=== PATIENT | male | born 1980 | race African-American/Black ===

== ENCOUNTER 2016-07-08 11:04 | Emergency (ER) | payer SELFPAY ==
[2016-07-08] MEDS ORDERED: Albuterol 0.5% 2.5 MG/0.5 ML Neb Soln NEB ONE (11:50)
[2016-07-08] MEDS ORDERED: predniSONE 20 MG Tab PO ONE (11:50)
--- NOTE | 2016-07-08 11:54 | EDM.PDOC ---
ED HISTORY OF PRESENT ILLNESS - General Chief Complaint: Respiratory Problem Stated Complaint: ASTHMA Time Seen by Provider: 07/08/16 11:39 Source of Information: Reports: Patient History Limitations: Reports: No limitations - History of Present Illness INITIAL COMMENTS - FREE TEXT/NARRATIVE: Patient has history of asthma. States since moving from [place] to [place] this past Wednesday has been experiencing SOB and intermittent chest tightness. [facility] this is consistent with previous asthma flare ups. States he has been short of breath a few weeks prior to moving. States he believes the change in altitude and allergy exposure are worsening the symptoms. In addition experiences intermittent left lateral chest pain described as dull pain, decreased with taking deep breath. Pain is mild in intensity with no known aggravating factors. States he has intermittent cough with only clear phlegm. Has noticed increased sinus congestion, postnasal gtt with moving. States he has a history of acid reflux with no worsening with no increased noted with recent symptoms. [facility] a few months ago had echocardiogram revealing only mild valve leaks. Denies n/v, diaphoresis, dizziness, fever/chills, or any additional complaints. Past medical history asthma, genital herpes, MRSA. Medications Provera and acyclovir Surgical history carpal tunnel surgery and ulnar nerve decompression Timing/Duration: Reports: Constant, Waxing/waning Severity: mild Location, General: Reports: chest Quality: Reports: Dull Improves with: Reports: Other (Taking deep breath) Worsens with: Reports: Other (None stated) Context, General: Reports: Other (Just moved from [place] to [place]) Associated Symptoms (General): Reports: chest pain, cough w sputum, shortness of breath. 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 (see below) (see HPI) - Related Data Allergies/ADRs: Allergies Allergy/AdvReac Type Severity Reaction Status Date / Time ciprofloxacin [From Cipro] Allergy Cannot Verified 07/08/16 11:20 Remember doxycycline Allergy Cannot Verified 07/08/16 11:20 Remember vancomycin Allergy Other Verified 07/08/16 11:20 Home Meds: Home Meds Acyclovir 400 mg PO BID 07/08/16 [History] Albuterol [Ventolin HFA] 2 puff INH Q4HR #1 inhaler 07/08/16 [Rx] Prednisone [IMW: predniSONE] 40 mg PO WITHBREAKFAST #10 tab 07/08/16 [Rx] Past Medical History Respiratory History: Reports: Asthma Gastrointestinal History: Reports: GERD Social & Family History - Tobacco Use Smoking Status *Q: Current Every Day Smoker Years of Tobacco use: 20 Packs/Tins Daily: 0.3 - Recreational Drug Use Recreational Drug Use: No ED ROS GENERAL - Review of Systems Review Of Systems: See Below Constitutional: Denies: fever, chills, malaise, weakness, fatigue, decreased appetite HEENT: Reports: Rhinitis, Sinus problem. Denies: Ear pain, Throat pain Respiratory: Reports: Shortness of Breath, Wheezing (Intermittent), Pleuritic Chest Pain, Cough, Sputum (Clear) Cardiovascular: Reports: Dyspnea on exertion. Denies: Chest pain, Edema, Lightheadedness, Orthopnea, Palpitations, PND, Syncope GI/Abdominal: Denies: Abdominal pain, Constipation, Diarrhea, Nausea, Vomiting Skin: Denies: rash Neurological: Denies: Dizziness ED EXAM, GENERAL - Physical Exam Exam: See Below Exam Limited By: No limitations General Appearance: alert, WD/WN, no apparent distress Eye Exam: bilateral eye: PERRL Ears: hearing grossly normal Nose: normal inspection, normal mucosa, no blood Throat/Mouth: Normal inspection, Normal oropharynx, Normal voice, No airway compromise Neck: normal inspection, supple, non-tender, full range of motion. No: lymphadenopathy (L), lymphadenopathy (R) Respiratory/Chest: no respiratory distress, no accessory muscle use, chest non- tender, pleural rub (Right lung field). No: crackles, rales, rhonchi, wheezing Cardiovascular: normal peripheral pulses, regular rate, rhythm, no edema, no murmur Peripheral Pulses: 2+: radial (R) GI/Abdominal: normal bowel sounds, soft, non tender, no distention Back Exam: normal inspection Extremities: normal inspection, normal range of motion, non-tender, no pedal edema, normal capillary refill Neurological: alert, oriented, CN II-XII intact, normal cognition, no motor/ sensory deficits Psychiatric: normal affect, normal mood Skin Exam: Warm, Dry, Intact, Normal color, No rash Course - Vital Signs Last Recorded V/S: Last Vital Signs Temp 98.0 F 07/08/16 11:21 Pulse 90 07/08/16 11:21 Resp 18 07/08/16 11:21 BP 153/100 H 07/08/16 11:21 Pulse Ox 98 07/08/16 12:06 - Orders/Labs/Meds Orders: Active Orders 24 hr Category Date Time Status EKG Documentation Completion [RC] STAT Care 07/08/16 11:50 Active RT Aerosol Therapy [RC] ASDIRECTED Care 07/08/16 11:50 Active Meds: Medications Discontinued Medications Generic Name Dose Route Start Last Admin Trade Name Estrada PRN Reason Stop Dose Admin Albuterol 2.5 mg 07/08/16 11:50 07/08/16 12:06 Proventil NEB 07/08/16 11:51 2.5 mg ONETIME ONE Administration Prednisone 40 mg 07/08/16 11:50 07/08/16 12:13 Prednisone PO 07/08/16 11:51 40 mg ONETIME ONE Administration - Re-Assessments/Exams Free Text/Narrative Re-Assessment/Exam: PERC Rule Negative. Ordered a chest x-ray, EKG, albuterol neb treatment, and prednisone 40 mg by mouth. 07/08/16 11:51 EKG sinus rhythm at a rate of 90, normal P axis, QTC 433, minimal ST elevation in the anterior leads, no acute ST changes noted. 07/08/16 12:25 1225 CXR revealed no acute processes. This was reviewed with . Final interpretation pending. 07/08/16 13:00 Reassessment, patient states after the albuterol neb treatment and also prednisone symptoms have gradually improved. Will discharge patient home with instructions. Departure - Departure Time of Disposition: 13:01 Disposition: Home, Self-Care 01 Condition: good Clinical Impression: Shortness of breath, Asthma exacerbation, mild Prescriptions: Albuterol [Ventolin HFA] 2 puff INH Q4HR #1 inhaler Prednisone [IMW: predniSONE] 40 mg PO WITHBREAKFAST #10 tab Instructions: Asthma, Adult, Shortness of Breath, [id number] Referrals: PCP,None [Primary Care Provider] - Elaina Morton [Physician] - Forms: ED Department Discharge, Return to Work/School Form Additional Instructions: Take the prednisone and albuterol as prescribed. Followup with Dr. Love PCP at [facility] in the next 2 to 3 wks. STOP SMOKING. Return to the E.D. as needed. - My Orders Last 24 Hours: My Active Orders 07/08/16 11:50 EKG Documentation Completion [RC] STAT RT Aerosol Therapy [RC] ASDIRECTED - Assessment/Plan Last 24 Hours: My Active Orders 07/08/16 11:50 EKG Documentation Completion [RC] STAT RT Aerosol Therapy [RC] ASDIRECTED
--- NOTE | 2016-07-08 12:34 | CR ---
Chest: Two views of the chest were obtained. Comparison: No previous chest x-ray. Heart size and mediastinum are normal. Lungs are clear. Bony structures are unremarkable. Impression: 1. Nothing acute is seen on two-view chest x-ray. Diagnostic code #1
[2016-07-08 13:48] VITALS: BP 130/82
== END 2016-07-08 13:20 | disposition home or self-care (01) ==
LOC: JD.ED 11:04
DX: J45.901 Unspecified asthma with (acute) exacerbation (principal); K21.9 Gastro-esophageal reflux disease without esophagitis; F17.200 Nicotine dependence, unspecified, uncomplicated; Z79.899 Other long term (current) drug therapy; Z88.1 Allergy status to other antibiotic agents
CPT/HCPCS: 71020; 93005; 94664; 99285; A9270; 99284

== ENCOUNTER 2016-11-15 15:22 | Emergency (ER) | payer BC ==
[2016-11-15 15:40] VITALS: BP 156/109
--- NOTE | 2016-11-15 16:13 | EDM.PDOC ---
ED HPI GENERAL MEDICAL PROBLEM - General Chief Complaint: Upper Extremity Injury/Pain Stated Complaint: RIGHT WRIST AND ARM PAIN Time Seen by Provider: 11/15/16 16:01 Source of Information: Reports: Patient History Limitations: Reports: No Limitations - History of Present Illness INITIAL COMMENTS - FREE TEXT/NARRATIVE: Patient is a 36-year-old male who presents to the ED complaining of right elbow and wrist pain. Patient states approximately 3 months ago had carpal tunnel surgery and also transposition of the ulnar nerve on the same arm. 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 States he has intermittent pain that has increased in frequency as of late. Pain is a throbbing achy sensation relieved with rest. He's been taking ibuprofen 800 mg with minimal relief while at work. He continues to wear wrist splints at night. Denies any recent injury to the affected extremity causing worsening pain. There 's been no swelling, redness, numbness or tingling, or any additional complaints. He did contact the orthopedic surgeon that performed this procedure and requested patient be seen in the ED for possible steroid injection. This was conducted in [place]. He offers no additional complaints. Right Elbow Pain Score (Numeric/FACES): 5 - Related Data Allergies Allergy/AdvReac Type Severity Reaction Status Date / Time ciprofloxacin [From Cipro] Allergy Cannot Verified 11/15/16 15:40 Remember doxycycline Allergy Cannot Verified 11/15/16 15:40 Remember vancomycin Allergy Other Verified 11/15/16 15:40 Home Meds: Home Meds Acyclovir 400 mg PO BID 07/08/16 [History] Albuterol [Ventolin HFA] 2 puff INH Q4HR #1 inhaler 07/08/16 [Rx] Past Medical History Respiratory History: Reports: Asthma Gastrointestinal History: Reports: GERD Social & Family History - Tobacco Use Smoking Status *Q: Current Every Day Smoker Years of Tobacco use: 16 Packs/Tins Daily: 1 - Caffeine Use Caffeine Use: Reports: Coffee - Recreational Drug Use Recreational Drug Use: Yes Drug Use in Last 12 Months: Yes Recreational Drug Type: Reports: Marijuana/Hashish Recreational Drug Use Frequency: Rarely Review of Systems - Review of Systems Review Of Systems: ROS reveals no pertinent complaints other than HPI. ED EXAM, GENERAL - Physical Exam Exam: See Below Exam Limited By: No Limitations General Appearance: Alert, WD/WN, No Apparent Distress Ears: Hearing Grossly Normal Nose: Normal Inspection Throat/Mouth: Normal Voice, No Airway Compromise Neck: Normal Inspection, Supple Respiratory/Chest: No Respiratory Distress, Lungs Clear, Normal Breath Sounds, No Accessory Muscle Use Cardiovascular: Normal Peripheral Pulses, Regular Rate, Rhythm Peripheral Pulses: 2+: Radial (R) Extremities: Normal Inspection, Normal Range of Motion, No Pedal Edema, Normal Capillary Refill, Other (tenderness noted to the medial aspect of the right elbow. No sensory/motor deficits distally. Old surgical incision to the right wrist 2nd to carpal tunnel release. No pain with palpation. Patient has a trigger finger to the right index finger.) Neurological: Alert, Oriented, CN II-XII Intact, Normal Cognition, No Motor/ Sensory Deficits Psychiatric: Normal Affect, Normal Mood Skin Exam: Warm, Dry, Intact, Normal Color Course - Vital Signs Last Recorded V/S: Last Vital Signs Temp 98.5 F 11/15/16 15:35 Pulse 96 11/15/16 15:35 Resp 16 11/15/16 15:35 BP 156/109 H 11/15/16 15:35 Pulse Ox 98 11/15/16 15:35 - Re-Assessments/Exams Free Text/Narrative Re-Assessment/Exam: On examination patient had minimal discomfort. No sensory/motor deficits noted. Trigger finger present to the right index finger. He is requesting a cortisone injection for the trigger finger. Will have the patient follow-up with a orthopedic surgeon to be reevaluated and determine the best course of treatment for the trigger finger. Patient had no additional questions or concerns. He'll be discharged home with instructions as documented. No further therapies are required today. Departure - Departure Time of Disposition: 16:17 Disposition: Home, Self-Care 01 Condition: Good Clinical Impression: Wrist pain, right, Elbow pain, right Trigger finger of right hand Qualifiers: Trigger finger location: index finger Qualified Code(s): M65.321 - Trigger finger, right index finger - Discharge Information Instructions: Trigger Finger, Wrist Pain, [id number] Referrals: Min Antonio MD [Physician] - Forms: ED Department Discharge, ED Return to Work/School Form Additional Instructions: As discussed refrain from any activities that cause worsening pain. Apply ice to the affected areas 4 times daily, 20 to duration, do not apply ice directly on the skin. Take ibuprofen and Tylenol in alternating fashion for pain. Call and make an appointment to be seen by an orthopedic surgeon in the next week for reevaluation and determine best course of treatment for trigger finger. Continue wearing wrist splints at night. Return to the ED as needed for any new or worsening symptoms.
== END 2016-11-15 16:35 | disposition home or self-care (01) ==
LOC: JD.ED 15:22
DX: M65.321 Trigger finger, right index finger (principal); J45.909 Unspecified asthma, uncomplicated; F17.210 Nicotine dependence, cigarettes, uncomplicated; K21.9 Gastro-esophageal reflux disease without esophagitis; Z88.1 Allergy status to other antibiotic agents
CPT/HCPCS: 99283

== ENCOUNTER 2017-02-14 18:38 | Emergency (ER) | payer BC ==
[2017-02-14 18:44] VITALS: BP 154/115
--- NOTE | 2017-02-14 19:09 | EDM.PDOC ---
ED HPI GENERAL MEDICAL PROBLEM - General Chief Complaint: Respiratory Problem Stated Complaint: SOB Time Seen by Provider: 02/14/17 18:55 Source of Information: Reports: Patient History Limitations: Reports: No Limitations - History of Present Illness INITIAL COMMENTS - FREE TEXT/NARRATIVE: 37-year-old male presents for evaluation treatment of an asthma exacerbation and shortness of breath. Patient reports he was ill last week with cold symptoms. He states that he thought he was over the symptoms and then on night he had worsening coughing. He states that he coughed so hard that he did vomit. He reports globus sensation. He reports that Wednesday morning he was coughing had a runny nose. He has been using Mucinex with no relief. He has reports a scratchy throat. Denies any fevers, chills, nausea, ear pain or throat pain. Normal he does not need his albuterol inhaler on a daily basis. He reports over the last few days he has been having to use the albuterol inhaler about twice a day. Patient did not get a flu shot this year. He denies any recent travel. Duration: Week(s): (1) Back Pain Score (Numeric/FACES): 4 - Related Data Allergies Allergy/AdvReac Type Severity Reaction Status Date / Time ciprofloxacin [From Cipro] Allergy Cannot Verified 11/15/16 15:40 Remember doxycycline Allergy Cannot Verified 11/15/16 15:40 Remember vancomycin Allergy Other Verified 11/15/16 15:40 Home Meds: Home Meds Acyclovir 400 mg PO BID 07/08/16 [History] Albuterol [Ventolin HFA] 2 puff INH Q4HR #1 inhaler 07/08/16 [Rx] Prednisone [IJD: predniSONE] 20 mg PO BID #10 tab 02/14/17 [Rx] Past Medical History Respiratory History: Reports: Asthma Gastrointestinal History: Reports: GERD - Past Surgical History Musculoskeletal Surgical History: Reports: Carpal Tunnel Social & Family History - Tobacco Use Smoking Status *Q: Current Every Day Smoker Years of Tobacco use: 17 Packs/Tins Daily: 1 - Caffeine Use Caffeine Use: Reports: Coffee, Soda, Tea - Recreational Drug Use Recreational Drug Use: No Drug Use in Last 12 Months: Yes Recreational Drug Type: Reports: Marijuana/Hashish Recreational Drug Use Frequency: Rarely ED ROS GENERAL - Review of Systems Review Of Systems: See Below Constitutional: Denies: Fever, Chills HEENT: Denies: Ear Pain, Throat Pain (reports a "scratchy throat") Respiratory: Reports: Cough GI/Abdominal: Reports: Vomiting (post emesis x 1) ED EXAM, GENERAL - Physical Exam Exam: See Below Exam Limited By: No Limitations General Appearance: Alert, WD/WN, No Apparent Distress Eye Exam: Bilateral Eye: Normal Inspection Ears: Normal External Exam, Normal Canal, Hearing Grossly Normal, Normal TMs Nose: Normal Inspection Throat/Mouth: Normal Inspection, Normal Lips, Normal Voice, No Airway Compromise Respiratory/Chest: No Respiratory Distress, Lungs Clear, Normal Breath Sounds Cardiovascular: Normal Peripheral Pulses, Regular Rate, Rhythm, No Murmur Neurological: Alert, Oriented, Normal Cognition Psychiatric: Normal Affect, Normal Mood Skin Exam: Warm, Dry, Normal Color Course - Vital Signs Last Recorded V/S: Last Vital Signs Temp 36.4 C 02/14/17 18:43 Pulse 88 02/14/17 18:43 Resp 20 02/14/17 18:43 BP 154/115 H 02/14/17 18:43 Pulse Ox 99 02/14/17 18:43 - Orders/Labs/Meds Orders: Active Orders 24 hr Category Date Time Status Chest 2V [CR] Stat Exams 02/14/17 19:03 Taken - Radiology Interpretation Free Text/Narrative:: chest xray 2 view shows no acute intrathoracic process - Re-Assessments/Exams Free Text/Narrative Re-Assessment/Exam: 02/14/17 20:20 Influenza is negative. Reviewed the chest xray and influenza with the patient. Will put on a short course of prednisone. The patient's blood pressure has been elevated in the ER with a systolic 150s to 160s. I encouraged him to, once he is feeling better and no longer on the prednisone, check his blood pressure at least weekly and record this. He continues to have a blood pressure of greater than 130/90 follow-up with family medicine. We will discharge home at this time. Discharge instructions as documented. Departure - Departure Time of Disposition: 20:28 Disposition: Home, Self-Care 01 Condition: Good Clinical Impression: Asthma exacerbation, mild, High blood pressure - Discharge Information Prescriptions: Prednisone [IJD: predniSONE] 20 mg PO BID #10 tab Instructions: Asthma, Adult, Hypertension, [id number] Referrals: PCP,None [Primary Care Provider] - Elaina Morton [Physician] - Forms: ED Department Discharge Additional Instructions: Take the prednisone one tablet twice a day for 5 days. Continue to use your albuterol nebulizer as needed for shortness of breath. Follow-up with family medicine your symptoms are not much better in 2 weeks. rest. Make sure are drinking plenty of fluids. [id number] Tylenol or Motrin as needed for headache and symptom relief. Recommend checking your blood pressure at least once a week. Record this. If your blood pressure continues to be 130/90 follow-up with family medicine. Recommend Dr. Geronimo or Mk Wong at the [facility]. Please call to schedule either one of these providers. Please return to the ER if your symptoms change or worsen. - My Orders Last 24 Hours: My Active Orders 02/14/17 19:03 Chest 2V [CR] Stat - Assessment/Plan Last 24 Hours: My Active Orders 02/14/17 19:03 Chest 2V [CR] Stat
--- NOTE | 2017-02-15 07:24 | CR ---
Chest: Two views of the chest were obtained. Comparison: Prior chest x-ray of 07/08/16. Heart size and mediastinum are normal. Lungs are clear. Bony structures are unremarkable for the patient's age. Impression: 1. Nothing acute is identified on two-view chest x-ray. Diagnostic code #1
== END 2017-02-14 20:35 | disposition home or self-care (01) ==
LOC: JD.ED 18:38
DX: J45.901 Unspecified asthma with (acute) exacerbation (principal); R03.0 Elevated blood-pressure reading, without diagnosis of hypertension; F17.210 Nicotine dependence, cigarettes, uncomplicated; Z88.1 Allergy status to other antibiotic agents
CPT/HCPCS: 71020; 71020-26; 87804; 99284; 99285

== ENCOUNTER 2017-08-10 16:47 | Emergency (ER) | payer BC ==
[2017-08-10 16:57] VITALS: BP 140/98
--- NOTE | 2017-08-10 18:33 | EDM.PDOC ---
ED HPI GENERAL MEDICAL PROBLEM - General Chief Complaint: Chest Pain Stated Complaint: RHIANNON SENT HIM HERE Time Seen by Provider: 08/10/17 17:10 Source of Information: Reports: Patient, Provider (walk-in clinic provider) History Limitations: Reports: No Limitations - History of Present Illness INITIAL COMMENTS - FREE TEXT/NARRATIVE: 37-year-old male sent from the walk-in clinic for evaluation and treatment of chest pain shortness breath. He walking clinic provider call and states that they're worried about a PE and therefore decided to send those to us for further management and care. Patient reports that he has been experiencing chest pains. States this is been going on for several years. He also reports that he has some shortness of breath. States that he had times will gasp for breath. Reports when he falls asleep sometimes he'll wake up gasping for air. He is not having headaches but states he feels "cloudy". He denies any lightheadedness, syncope, nausea, vomiting or any fevers. Reports that the chest pain is more of a tightness. Sometimes it is a sharp pain. States that belching will often relieve the discomfort. He is not currently on a proton pump inhibitor but states he has a past medical history of GERD. He did have not upper endoscopy in the past, and this has been several years. Patient reports that he has seen cardiology in the past. He had what he describes as an echocardiogram. Was told that he had a "leaky valve ". He states he is supposed to see cardiology yearly but since he moved to [place] from [place] he has not followed up with cardiology. Reports swelling in his legs evident by seen the band from his socks on his legs. Patient's primary care providers is Bertha Elise. Left Chest Pain Score (Numeric/FACES): 2 - Related Data Allergies Allergy/AdvReac Type Severity Reaction Status Date / Time ciprofloxacin [From Cipro] Allergy Cannot Verified 08/10/17 16:53 Remember doxycycline Allergy Cannot Verified 08/10/17 16:53 Remember vancomycin Allergy Other Verified 08/10/17 16:53 Home Meds: Home Meds Acyclovir 400 mg PO BID 07/08/16 [History] Fish Oil/[place]-3 Fatty Acids [Fish Oil 1,000 MG] 1 tab PO DAILY 08/10/17 [ History] amLODIPine Besylate [Amlodipine Besylate] 10 mg PO DAILY 08/10/17 [History] Past Medical History Cardiovascular History: Reports: Hypertension Respiratory History: Reports: Asthma Gastrointestinal History: Reports: GERD - Past Surgical History Musculoskeletal Surgical History: Reports: Carpal Tunnel Social & Family History - Tobacco Use Smoking Status *Q: Current Every Day Smoker Years of Tobacco use: 20 Packs/Tins Daily: 0.2 - Caffeine Use Caffeine Use: Reports: Coffee, Soda - Recreational Drug Use Recreational Drug Use: No ED ROS GENERAL - Review of Systems Review Of Systems: See Below Respiratory: Reports: Shortness of Breath Cardiovascular: Reports: Chest Pain, Edema. Denies: Lightheadedness, Syncope GI/Abdominal: Denies: Nausea, Vomiting Neurological: Denies: Headache, Syncope ED EXAM, GENERAL - Physical Exam Exam: See Below Exam Limited By: No Limitations General Appearance: Alert, WD/WN, No Apparent Distress Ears: Normal External Exam Nose: Normal Inspection Throat/Mouth: Normal Inspection, Normal Lips, Normal Voice, No Airway Compromise Respiratory/Chest: No Respiratory Distress, Lungs Clear, Normal Breath Sounds Cardiovascular: Normal Peripheral Pulses, Regular Rate, Rhythm, No Murmur GI/Abdominal: Normal Bowel Sounds, Soft, Non-Tender Neurological: Alert, Oriented, Normal Cognition Psychiatric: Normal Affect, Normal Mood Skin Exam: Warm, Dry, Normal Color EKG INTERPRETATION EKG Date: 08/10/17 Time: 17:55 Rhythm: NSR Rate (Beats/Min): 87 [place]: Normal P-Wave: Present QRS: Normal ST-T: Normal QT: Normal Comparison: No Change EKG Interpretation Comments: NSR at 87 bpm. No acute changes. No change from 07-08-16 ECG. Reviewed by myself and Dr. Faye. Course - Vital Signs Last Recorded V/S: Last Vital Signs Temp 37.3 C 08/10/17 16:56 Pulse 90 08/10/17 16:56 Resp 16 08/10/17 16:56 BP 140/98 H 08/10/17 16:56 Pulse Ox 97 08/10/17 16:56 - Orders/Labs/Meds Orders: Active Orders 24 hr Category Date Time Status Cardiac Monitoring [RC] . DIRECTED Care 08/10/17 17:25 Active EKG Documentation Completion [RC] ASDIRECTED Care 08/10/17 17:23 Active Chest 2V [CR] Stat Exams 08/10/17 17:21 Taken EKG 12 Lead [EK] Stat Ther 08/10/17 17:21 Ordered Labs: Laboratory Tests 08/10/17 08/10/17 08/10/17 Range/Units 17:40 17:40 17:40 WBC 8.14 (4.23-9.07) K/mm3 RBC 4.86 (4.63-6.08) M/mm3 Hgb 14.5 (13.7-17.5) gm/L Hct 43.9 (40.1-51.0) % MCV 90.3 (79.0-92.2) fl MCH 29.8 (25.7-32.2) pg MCHC 33.0 (32.2-35.5) g/dl RDW Std Deviation 50.7 H (35.1-43.9) fL Plt Count 255 (163-337) K/mm3 MPV 10.0 (9.4-12.3) fl Neut % (Auto) 58.6 (34.0-67.9) % Lymph % (Auto) 28.1 (21.8-53.1) % Ramsey % (Auto) 10.1 (5.3-12.2) % Eos % (Auto) 2.6 (0.8-7.0) Baso % (Auto) 0.4 (0.1-1.2) % Neut # (Auto) 4.77 (1.78-5.38) K/mm3 Lymph # (Auto) 2.29 (1.32-3.57) K/mm3 Ramsey # (Auto) 0.82 (0.30-0.82) K/mm3 Eos # (Auto) 0.21 (0.04-0.54) K/mm3 Baso # (Auto) 0.03 (0.01-0.08) K/mm3 D-Dimer, Quantitative 0.25 (0.19-0.50) mg/L Sodium 137 (136-145) mEq/L Potassium 3.5 (3.5-5.1) mEq/L Chloride 101 (98-107) mEq/L Carbon Dioxide 27 (21-32) mEq/L Anion Gap 12.5 (5-15) BUN 13 (7-18) mg/dL Creatinine 1.1 (0.7-1.3) mg/dL Est Cr Clr Drug Dosing 93.73 mL/min Estimated GFR (MDRD) > 60 (>60) mL/min BUN/Creatinine Ratio 11.8 L (14-18) Glucose 90 (74-106) mg/dL Calcium 9.0 (8.5-10.1) mg/dL Total Bilirubin 0.3 (0.2-1.0) mg/dL AST 35 (15-37) U/L ALT 84 H (16-63) U/L Alkaline Phosphatase 75 (46-116) U/L Troponin I < 0.017 (0.00-0.056) ng/mL Total Protein 7.8 (6.4-8.2) g/dl Albumin 4.0 (3.4-5.0) g/dl Globulin 3.8 gm/dL Albumin/Globulin Ratio 1.1 (1-2) - Radiology Interpretation Free Text/Narrative:: Chest: PA and lateral views of the chest were obtained. Comparison: Prior chest x-ray of 02/14/17. Heart size and mediastinum are normal. Lungs are clear. Bony structures are within normal limits for the patient's age. Impression: 1. Nothing acute is seen on 2 view chest x-ray. - Re-Assessments/Exams Free Text/Narrative Re-Assessment/Exam: 08/10/17 19:47 I reviewed the labs, EKG and imaging with the patient. I do feel that his chest discomfort is likely from his reflux. I recommend he restart a proton pump inhibitor. Shortness of breath could be from reflux but is possible that he is getting a minor exaggeration ain his asthma due to allergies. I am recommending he start an antihistamine as well as restart a proton pump inhibitor. Follow-up with his primary care provider. Discharge instructions as documented. Departure - Departure Time of Disposition: 19:55 Disposition: Home, Self-Care 01 Condition: Fair Clinical Impression: Shortness of breath, GERD (gastroesophageal reflux disease) Instructions: Food Choices for Gastroesophageal Reflux Disease, Adult, Easy-to- Read, Shortness of Breath, Adult, [id number] Referrals: Bertha Elise PA-C [Primary Care Provider] - Forms: ED Department Discharge Additional Instructions: Follow-up with your primary care provider within 2 weeks for recheck of your symptoms. Recommend starting a PPI, these are available this time. Start something like Prilosec, Nexium, etc. Take 1 tab twice a day. Also recommended starting something like an antihistamine such as Claritin or Zyrtec. These are also available [id number]. Continue to use your albuterol inhaler as needed. Please return to the ER if your symptoms change or worsen. - My Orders Last 24 Hours: My Active Orders 08/10/17 17:21 Chest 2V [CR] Stat EKG 12 Lead [EK] Stat 08/10/17 17:23 EKG Documentation Completion [RC] ASDIRECTED 08/10/17 17:25 Cardiac Monitoring [RC] . DIRECTED - Assessment/Plan Last 24 Hours: My Active Orders 08/10/17 17:21 Chest 2V [CR] Stat EKG 12 Lead [EK] Stat 08/10/17 17:23 EKG Documentation Completion [RC] ASDIRECTED 08/10/17 17:25 Cardiac Monitoring [RC] . DIRECTED
--- NOTE | 2017-08-11 07:31 | CR ---
Chest: PA and lateral views of the chest were obtained. Comparison: Prior chest x-ray of 02/14/17. Heart size and mediastinum are normal. Lungs are clear. Bony structures are within normal limits for the patient's age. Impression: 1. Nothing acute is seen on two-view chest x-ray. Diagnostic code #1
== END 2017-08-10 20:09 | disposition home or self-care (01) ==
LOC: JD.ED 16:47
DX: K21.9 Gastro-esophageal reflux disease without esophagitis (principal); R06.02 Shortness of breath; I10 Essential (primary) hypertension; Z88.1 Allergy status to other antibiotic agents; Z79.899 Other long term (current) drug therapy; F17.210 Nicotine dependence, cigarettes, uncomplicated
CPT/HCPCS: 36415; 71046; 71046-26; 80053; 84484; 85025; 85379; 93005; 93010; 99284; 99285-25

== ENCOUNTER 2018-05-28 19:54 | Emergency (ER) | payer MEDICAID ==
[2018-05-28 20:05] VITALS: BP 146/106
--- NOTE | 2018-05-28 20:22 | EDM.PDOC ---
ED HPI GENERAL MEDICAL PROBLEM - General Chief Complaint: Skin Complaint Stated Complaint: PAIN ON RIGHT SIDE OF HEAD AND FACE Time Seen by Provider: 05/28/18 20:06 Source of Information: Reports: Patient History Limitations: Reports: No Limitations - History of Present Illness INITIAL COMMENTS - FREE TEXT/NARRATIVE: 38 y/o male presents to ER with cc folliculitis on back of neck and head for the past 2 years. He reports that over the past week the symptoms are getting worse. He denies any fever or chills. He reports that he is using Dial soap for his symptoms. He reports that it is worse if he scratches the area. He states he has recently been diagnosis as diabetic. He has been managing it with diet. He reports his sugars are running 90 to 130. His PCP is Dr. Uribe. Onset Date: 05/13/16 Duration: Getting Worse Location: Reports: Head Severity: Mild Improves with: Reports: None Worsens with: Reports: None Associated Symptoms: Denies: Fever/Chills Right Face/Facial Pain Score (Numeric/FACES): 10 - Related Data Allergies Allergy/AdvReac Type Severity Reaction Status Date / Time ciprofloxacin [From Cipro] Allergy Cannot Verified 05/28/18 20:01 Remember doxycycline Allergy Cannot Verified 05/28/18 20:01 Remember vancomycin Allergy Other Verified 05/28/18 20:01 Home Meds: Home Meds Acyclovir 400 mg PO BID 07/08/16 [History] Cephalexin [Keflex] 500 mg PO QID 7 Days #28 capsule 05/28/18 [Rx] Chlorhexidine Gluconate [Chlorhexidine Gluconate 0.12% Rinse] 118 ml MM DAILY 10 Days bottle 05/28/18 [Rx] Hydrochlorothiazide [Microzide] 12.5 mg PO DAILY 05/28/18 [History] Metoprolol Succinate 50 mg PO DAILY 05/28/18 [History] Mupirocin Oint [Bactroban Oint] 22 gm .XX BID 7 Days tube 05/28/18 [Rx] Past Medical History Cardiovascular History: Reports: Hypertension Respiratory History: Reports: Asthma Gastrointestinal History: Reports: GERD Endocrine/Metabolic History: Reports: Diabetes, Type II Dermatologic History: Reports: Other (See Below) Other Dermatologic History: Cyst removed from back, folliculitis - Past Surgical History Musculoskeletal Surgical History: Reports: Carpal Tunnel, Shoulder Surgery Social & Family History - Tobacco Use Smoking Status *Q: Never Smoker - Caffeine Use Caffeine Use: Reports: Coffee, Soda - Recreational Drug Use Recreational Drug Use: No ED ROS GENERAL - Review of Systems Review Of Systems: See Below Constitutional: Denies: Fever, Chills HEENT: Reports: No Symptoms Respiratory: Reports: No Symptoms, Cough Endocrine: Denies: High Glucose Skin: Reports: Lesions (posterior head and neck) Neurological: Reports: No Symptoms Psychiatric: Reports: No Symptoms Hematologic/Lymphatic: Reports: No Symptoms Immunologic: Reports: No Symptoms ED EXAM, SKIN/RASH Exam: See Below Exam Limited By: No Limitations General Appearance: Alert, WD/WN, No Apparent Distress Head: Atraumatic, Normocephalic. No: Facial Swelling, Facial Tenderness Neck: Normal Inspection, Supple, Non-Tender Neurological: Alert, Oriented, CN II-XII Intact, Normal Cognition, Normal Gait, Normal Reflexes, No Motor/Sensory Deficits Skin: Warm, Dry, Intact (multiple inflammed follicule noted on neck and back of head, they are red, warm to touch and painful to touch. ) Course - Vital Signs Last Recorded V/S: Last Vital Signs Temp 97.8 F 05/28/18 20:03 Pulse 88 05/28/18 20:03 Resp 16 05/28/18 20:03 BP 146/106 H 05/28/18 20:03 Pulse Ox 100 05/28/18 20:03 - Re-Assessments/Exams Free Text/Narrative Re-Assessment/Exam: 05/28/18 20:37 I don't feel he needs further testing at this time. I will discharge home with Keflex, Mupirocin and chlorhexidine. I instructed the patient to follow up with his PCP. Encouraged to return to the emergency room for any new or acutely worsening symptoms. Departure - Departure Time of Disposition: 20:25 Disposition: Home, Self-Care 01 Clinical Impression: Folliculitis - Discharge Information *PRESCRIPTION DRUG MONITORING PROGRAM REVIEWED*: Not Applicable *COPY OF PRESCRIPTION DRUG MONITORING REPORT IN PATIENT GI: Not Applicable Prescriptions: Cephalexin [Keflex] 500 mg PO QID 7 Days #28 capsule Chlorhexidine Gluconate [Chlorhexidine Gluconate 0.12% Rinse] 118 ml MM DAILY 10 Days bottle Mupirocin Oint [Bactroban Oint] 22 gm .XX BID 7 Days tube Referrals: Amado Uribe MD [Primary Care Provider] - Additional Instructions: You have been diagnosis with folliculitis. Stop using head and shoulders. Use Selsun Blue 3 times a week. Do not use soaps that are perfumed. Follow-up with your primary doctor Dr. Uribe. Return to the emergency room for any new or acutely worsening symptoms.
== END 2018-05-28 20:50 | disposition home or self-care (01) ==
LOC: JD.ED 19:54
DX: L73.9 Follicular disorder, unspecified (principal); E11.9 Type 2 diabetes mellitus without complications; I10 Essential (primary) hypertension; Z88.1 Allergy status to other antibiotic agents; Z88.8 Allergy status to other drugs, medicaments and biological substances
CPT/HCPCS: 99283

== ENCOUNTER → 2024-09-13 | Day surgery (SDC) | payer BC, MEDICAID, OTHER ==
[~2024-09-13] MED LIST: Acetaminophen Soln 650 MG/20.3 ML UD Cup PO ONE; Acetaminophen/HYDROcodone 325-5 MG Tab PO PRN; Ketamine HCL/NACL, ISO-OSM 50 MG/5 ML Syringe ONE; Ketorolac 30 MG/ML SDV ONE; Ondansetron 4 MG/2 ML SDV IVPUSH PRN; Ondansetron 4 MG/2 ML SDV ONE; Propofol 200 MG/20 ML SDV ONE; Sodium Chloride 0.9% 10 ML Syringe FLUSH PRN; Sodium Chloride 0.9% 10 ML Syringe FLUSH SCH; dexmedeTOMIDine HCl 200 MCG/2 ML SDV ONE; fentaNYL 100 MCG/2 ML SDV IVPUSH PRN; fentaNYL 100 MCG/2 ML SDV ONE; propofoL 500 MG/50 ML 50 ML ONE
[2024-09-13] MEDS: Lactated Ringers 1,000 ML IV SCH (10:05)
[2024-09-13] MEDS: EPINEPHrine 1 MG/ML SDV ONE (12:21)
[2024-09-13 14:29] VITALS: BP 116/68; PULSE 62
== END | disposition home or self-care (01) ==
LOC: JD.SDS 09:41
PROVIDERS: ATTEND Surgery
DX: D12.5 Benign neoplasm of sigmoid colon (principal); K63.5 Polyp of colon; K62.5 Hemorrhage of anus and rectum; K60.30 Anal fistula, unspecified; K64.8 Other hemorrhoids
CPT/HCPCS: 45380; 45385; 46275; A9270; J0171; J0665; J1885; J2003; J2405; J2704; J3010; J7120; 00811; J3490